=== PATIENT | male | born 1965 | race Caucasian/White ===

== ENCOUNTER → 2017-10-22 | Outpatient (CLI) | payer OTHER ==
[2017-10-22 10:42] LABS: BASO # 0.1 10^3/uL (0.0-0.2); BASO % 0.9 % (0.0-1.0); EOS # 0.1 10^3/uL (0.0-0.50); EOS % 1.2 % (0.0-3.0); HEMATOCRIT 49.3 % (42.0-52.0); HEMOGLOBIN 16.6 g/dl (14.0-18.0); IMMATURE GRANULOCYTE % 0.6 % (0-3.0); LYMPH # 2.9 10^3/uL (1.5-4.5); LYMPH % 35.4 % (24.0-44.0); MEAN CORPUSCULAR HEMOGLOBIN 29.1 pg (27.0-33.0); MEAN CORPUSCULAR HGB CONC 33.7 g/dl (32.0-36.5); MEAN CORPUSCULAR VOLUME 86.5 fl (80.0-96.0); MONO # 0.4 10^3/uL (0.0-0.8); MONO % 5.1 % (0.0-5.0); NEUTROPHILS # 4.7 10^3/uL (1.8-7.7); NEUTROPHILS % 56.8 % (36.0-66.0); PLATELET COUNT, AUTOMATED 260 10^3/uL (150-450); RED CELL DISTRIBUTION WIDTH 13.1 % (11.5-14.5); WHITE BLOOD COUNT 8.2 10^3/uL (4.0-10.0)
[2017-10-22 10:53] LABS: ALBUMIN 3.8 GM/DL (3.2-5.2); ALBUMIN/GLOBULIN RATIO 1.15 (1.00-1.93); ALKALINE PHOSPHATASE 207 U/L (45-117); ANION GAP 9 MEQ/L (8-16); AST/SGOT 60 U/L (7-37); BILIRUBIN,TOTAL 0.5 MG/DL (0.2-1.0); BLOOD UREA NITROGEN 20 MG/DL (7-18); CALCIUM LEVEL 8.4 MG/DL (8.5-10.1); CARBON DIOXIDE LEVEL 28 MEQ/L (21-32); CHLORIDE LEVEL 95 MEQ/L (98-107); CHOLESTEROL LEVEL 320 MG/DL (<200); CHOLESTEROL RISK RATIO 9.411 (<5); CREATININE FOR GFR 0.86 MG/DL (0.70-1.30); GLOMERULAR FILTRATION RATE > 60.0 (>56); GLUCOSE, FASTING 383 MG/DL (70-100); HDL CHOLESTEROL 34 MG/DL (>40); NON-HDL-C 286 MG/DL; POTASSIUM SERUM 4.1 MEQ/L (3.5-5.1); SODIUM LEVEL 132 MEQ/L (136-145); TOTAL PROTEIN 7.1 GM/DL (6.4-8.2); TRIGLYCERIDES LEVEL 1708 MG/DL (<150)
[2017-10-22 11:31] LABS: ALT/SGPT 96 U/L (12-78)
[2017-10-23 14:14] LABS: PSA TOTAL 0.3 ng/mL (0.0-4.0)
[2017-10-25 06:18] LABS: ESTIMATED AVERAGE GLUCOSE 372 MG/DL (60-110); HEMOGLOBIN A1c 14.6 %
== END ==
LOC: M WUC 08:44
DX: K21.9 Gastro-esophageal reflux disease without esophagitis (principal); Z12.5 Encounter for screening for malignant neoplasm of prostate; E78.4 Other hyperlipidemia

== ENCOUNTER → 2019-08-24 | Outpatient (REF) | payer OTHER ==
[2019-08-24 12:45] LABS: HEMATOCRIT 48.4 % (42.0-52.0); HEMOGLOBIN 16.3 g/dl (13.5-17.5); MEAN CORPUSCULAR HEMOGLOBIN 29.1 pg (27.0-33.0); MEAN CORPUSCULAR HGB CONC 33.7 g/dl (32.0-36.5); MEAN CORPUSCULAR VOLUME 86.4 fl (80.0-96.0); PLATELET COUNT, AUTOMATED 309 10^3/uL (150-450); WHITE BLOOD COUNT 9.9 10^3/uL (4.0-10.0)
[2019-08-24 13:14] LABS: CREATININE, URINE 38.9 MG/DL; MALB URINE SIEMENS 7.5 MG/L; MAU/CREAT RATIO 19.2 MCG/MG (0.0-30.0)
[2019-08-24 13:25] LABS: ALBUMIN 3.9 GM/DL (3.2-5.2); ALT/SGPT 44 U/L (12-78); BILIRUBIN,TOTAL 0.5 MG/DL (0.2-1.0); BLOOD UREA NITROGEN 14 MG/DL (7-18); CALCIUM LEVEL 8.7 MG/DL (8.5-10.1); CARBON DIOXIDE LEVEL 29 MEQ/L (21-32); CHLORIDE LEVEL 95 MEQ/L (98-107); CHOLESTEROL LEVEL 341 MG/DL (<200); CREATININE FOR GFR 1.12 MG/DL (0.70-1.30); FREE T4 1.03 NG/DL (0.76-1.46); GLOMERULAR FILTRATION RATE > 60.0 (>56); GLUCOSE, FASTING 435 MG/DL (70-100); HDL CHOLESTEROL 31 MG/DL (>40); NON-HDL-C 310 MG/DL; POTASSIUM SERUM 4.9 MEQ/L (3.5-5.1); SODIUM LEVEL 132 MEQ/L (136-145); TOTAL PROTEIN 7.3 GM/DL (6.4-8.2); TRIGLYCERIDES LEVEL 702 MG/DL (<150)
[2019-08-24 13:40] LABS: HEMOGLOBIN A1c 12.1 %
== END ==
LOC: M SFHCPLAZ 09:07
PROVIDERS: ATTEND Physician Assistant
DX: K21.9 Gastro-esophageal reflux disease without esophagitis (principal); F17.200 Nicotine dependence, unspecified, uncomplicated; Z00.00 Encounter for general adult medical examination without abnormal findings; E11.9 Type 2 diabetes mellitus without complications; Z13.220 Encounter for screening for lipoid disorders; Z13.29 Encounter for screening for other suspected endocrine disorder

== ENCOUNTER → 2019-10-04 | Outpatient (CLI) | payer OTHER ==
[2019-10-04 17:12] LABS: CHOLESTEROL RISK RATIO 7.945 (<5)
[2019-10-04 17:20] LABS: HEMOGLOBIN A1c 11.5 %
== END ==
LOC: M WUC 14:46
PROVIDERS: ATTEND Physician Assistant
DX: E11.9 Type 2 diabetes mellitus without complications (principal); E78.5 Hyperlipidemia, unspecified

== ENCOUNTER → 2019-11-15 | Outpatient (REF) | payer OTHER | LOC: M SFHCPLAZ 11:44 | PROVIDERS: ATTEND Physician Assistant | DX: E11.9 Type 2 diabetes mellitus without complications (principal); E78.5 Hyperlipidemia, unspecified ==

== ENCOUNTER → 2019-11-16 | Outpatient (REF) | payer OTHER ==
[2019-11-16 10:56] LABS: HEMOGLOBIN A1c 8.9 %
[2019-11-16 10:58] LABS: CHOLESTEROL RISK RATIO 6.102 (<5)
== END ==
LOC: M SFHCPLAZ 08:16
PROVIDERS: ATTEND Physician Assistant
DX: E11.9 Type 2 diabetes mellitus without complications (principal); E78.5 Hyperlipidemia, unspecified

== ENCOUNTER → 2020-01-08 | Outpatient (CLI) | payer OTHER ==
[~2020-01-08] MED LIST: ATOR1TAB21 PO; GEMF600T5 PO; JANT5TAB PO; JARD1TAB PO; METF10004 PO; OMEP-221 PO
== END ==
LOC: M LABSMTC 11:27
PROVIDERS: ATTEND Anesthesiology
DX: Z01.818 Encounter for other preprocedural examination (principal); Z11.59 Encounter for screening for other viral diseases

== ENCOUNTER 2020-01-11 08:51 | Day surgery (SDC) | payer OTHER ==
[~2020-01-11] VITALS: Ht 180.3 cm; Wt 121.5 kg
[~2020-01-11 08:51] MED LIST changes: +LIDOCAINE 2% 100MG/5ML SDV (FOR ANES.) As Ordered ONE; +NS 1,000 ML IV ONE; +propofoL 200 MG/20 ML VIAL As Ordered ONE
[2020-01-11] MEDS ORDERED: propofoL 200 MG/20 ML VIAL As Ordered ONE ×3 (10:04→10:32)
[2020-01-11] MEDS ORDERED: GLUCAGON INJ 1MG VIAL As Ordered ONE (10:23)
--- NOTE | 2020-01-11 10:42 | ROOR ---
Patient Name: Bill Ortiz Procedure Date: 01/11/2020 9:56 AM Date of : 1965 Age: 54 Room: [facility] Gender: Male Note Status: Finalized Procedure: Colonoscopy Indications: Screening in patient at increased risk: Family history of 1st-degree relative with colorectal cancer Providers: Mickey HERNANDEZ MD Referring MD: DIETER HOLLIDAY Shanti [facility] Adelaida Requesting Provider: Medicines: Monitored Anesthesia Care Complications: No immediate complications. Procedure: Pre-Anesthesia Assessment: - The heart rate, respiratory rate, oxygen saturations, blood pressure, adequacy of pulmonary ventilation, and response to care were monitored throughout the procedure. The Colonoscope was introduced through the anus and advanced to the cecum, identified by appendiceal orifice and ileocecal valve. The colonoscopy was performed without difficulty. The patient tolerated the procedure well. The quality of the bowel preparation was fair. Findings: The perianal and digital rectal examinations were normal. Four sessile polyps were found in the ascending colon and ileocecal valve. The polyps were 4 to 5 mm in size. These polyps were removed with a cold snare. Resection and retrieval were complete. Four sessile polyps were found in the proximal descending colon and splenic flexure. The polyps were 6 to 7 mm in size. These polyps were removed with a cold snare. Resection and retrieval were complete. To close a defect after polypectomy, three hemostatic clips were successfully placed. Two sessile polyps were found in the sigmoid colon. The polyps were 6 to 7 mm in size. These polyps were removed with a cold snare. Resection and retrieval were complete. A 10 mm polyp was found in the mid sigmoid colon. The polyp was pedunculated. An endoloop was maneuvered over the polyp stalk and closed at the mucosal attachment prior to removal in order to prevent bleeding. The polyp was removed with a hot snare. Resection and retrieval were complete. To close a defect after polypectomy, one hemostatic clip was successfully placed. There was no bleeding at the end of the procedure. Internal hemorrhoids were found during retroflexion. The hemorrhoids were medium-sized. Impression: - Preparation of the colon was fair. - Four 4 to 5 mm polyps in the ascending colon and at the ileocecal valve, removed with a cold snare. Resected and retrieved. - Four 6 to 7 mm polyps in the proximal descending colon and at the splenic flexure, removed with a cold snare. Resected and retrieved. Clips were placed. - Two 6 to 7 mm polyps in the sigmoid colon, removed with a cold snare. Resected and retrieved. - One 10 mm polyp in the mid sigmoid colon, removed with a hot snare. Resected and retrieved. Clip was placed. - Internal hemorrhoids. Recommendation: - Repeat colonoscopy in 1 year for surveillance of multiple adenomas. - Repeat colonoscopy in 1 year because the bowel preparation was suboptimal. - Resume Coumadin (warfarin) at prior dose tomorrow. Refer to referring physician for further adjustment of therapy. Mickey Hernandez MD Mickey HERNANDEZ MD 01/11/2020 10:42:16 AM Electronically signed by Mickey HERNANDEZ MD Number of Addenda: 0 Note Initiated On: 01/11/2020 9:56 AM Estimated Blood Loss: Estimated blood loss: none.
[2020-01-11 10:55] VITALS: BP 149/86
== END 2020-01-11 11:07 | disposition home or self-care (01) ==
LOC: M OPP 08:51
PROVIDERS: ATTEND Internal Medicine Gastroenterology
DX: Z12.11 Encounter for screening for malignant neoplasm of colon (principal); Z80.0 Family history of malignant neoplasm of digestive organs; K63.5 Polyp of colon; K64.8 Other hemorrhoids; E11.9 Type 2 diabetes mellitus without complications; I10 Essential (primary) hypertension; K21.9 Gastro-esophageal reflux disease without esophagitis; F17.210 Nicotine dependence, cigarettes, uncomplicated; Z79.899 Other long term (current) drug therapy; Z79.84 Long term (current) use of oral hypoglycemic drugs; Z86.718 Personal history of other venous thrombosis and embolism; Z86.711 Personal history of pulmonary embolism
CPT/HCPCS: 45385; 88305; J1610

== ENCOUNTER → 2020-02-29 | Outpatient (CLI) | payer OTHER ==
[~2020-02-29] MED LIST changes: -LIDOCAINE 2% 100MG/5ML SDV (FOR ANES.) As Ordered ONE; -NS 1,000 ML IV ONE; -propofoL 200 MG/20 ML VIAL As Ordered ONE
[2020-02-29 11:22] LABS: BLOOD UREA NITROGEN 14 MG/DL (7-18); CALCIUM LEVEL 8.6 MG/DL (8.5-10.1); CARBON DIOXIDE LEVEL 30 MEQ/L (21-32); CHLORIDE LEVEL 108 MEQ/L (98-107); CHOLESTEROL LEVEL 241 MG/DL (<200); CHOLESTEROL RISK RATIO 6.513 (<5); CREATININE FOR GFR 0.93 MG/DL (0.70-1.30); GLOMERULAR FILTRATION RATE > 60.0 (>56); GLUCOSE, FASTING 99 MG/DL (70-100); HDL CHOLESTEROL 37 MG/DL (>40); LDL CHOLESTEROL 155 MG/DL (<100); NON-HDL-C 204 MG/DL; POTASSIUM SERUM 4.3 MEQ/L (3.5-5.1); SODIUM LEVEL 142 MEQ/L (136-145); TRIGLYCERIDES LEVEL 245 MG/DL (<150)
== END ==
LOC: M WUC 08:59
PROVIDERS: ATTEND Physician Assistant
DX: E11.9 Type 2 diabetes mellitus without complications (principal); E78.5 Hyperlipidemia, unspecified

== ENCOUNTER → 2020-08-05 | Outpatient (REF) | payer OTHER ==
[2020-08-05 11:03] LABS: INR 1.93; PROTHROMBIN TIME 22.5 SECONDS (12.5-14.3)
[2020-08-05 11:14] LABS: BLOOD UREA NITROGEN 21 MG/DL (7-18); CALCIUM LEVEL 9.2 MG/DL (8.5-10.1); CARBON DIOXIDE LEVEL 27 MEQ/L (21-32); CHLORIDE LEVEL 98 MEQ/L (98-107); CREATININE FOR GFR 1.08 MG/DL (0.70-1.30); GLOMERULAR FILTRATION RATE > 60.0 (>56); GLUCOSE, FASTING 351 MG/DL (70-100); POTASSIUM SERUM 4.1 MEQ/L (3.5-5.1); SODIUM LEVEL 133 MEQ/L (136-145)
[2020-08-05 11:20] LABS: HEMOGLOBIN A1c 10.9 %
== END ==
LOC: M SFHCPLAZ 08:02
PROVIDERS: ATTEND Physician Assistant
DX: E11.9 Type 2 diabetes mellitus without complications (principal); Z51.81 Encounter for therapeutic drug level monitoring

== ENCOUNTER → 2020-11-14 | Outpatient (REF) | payer OTHER ==
[2020-11-14 11:57] LABS: BLOOD UREA NITROGEN 19 MG/DL (7-18); CALCIUM LEVEL 8.7 MG/DL (8.5-10.1); CARBON DIOXIDE LEVEL 28 MEQ/L (21-32); CHLORIDE LEVEL 102 MEQ/L (98-107); GLOMERULAR FILTRATION RATE > 60.0 (>56); GLUCOSE, FASTING 205 MG/DL (70-100); POTASSIUM SERUM 4.5 MEQ/L (3.5-5.1); SODIUM LEVEL 135 MEQ/L (136-145)
[2020-11-14 13:11] LABS: HEMOGLOBIN A1c 11.6 %
== END ==
LOC: M PLALAB 08:04
PROVIDERS: ATTEND Physician Assistant
DX: E11.9 Type 2 diabetes mellitus without complications (principal)

== ENCOUNTER → 2021-05-01 | Outpatient (CLI) | payer OTHER ==
[2021-05-01 14:12] LABS: HEMOGLOBIN A1c 8.3 %
[2021-05-01 14:27] LABS: ALBUMIN 3.7 GM/DL (3.2-5.2); ALT/SGPT 28 U/L (12-78); BILIRUBIN,TOTAL 0.3 MG/DL (0.2-1.0); BLOOD UREA NITROGEN 11 MG/DL (7-18); CALCIUM LEVEL 9.1 MG/DL (8.5-10.1); CARBON DIOXIDE LEVEL 29 MEQ/L (21-32); CHLORIDE LEVEL 101 MEQ/L (98-107); CHOLESTEROL LEVEL 248 MG/DL (<200); CHOLESTEROL RISK RATIO 6.526 (<5); CREATININE FOR GFR 1.02 MG/DL (0.70-1.30); GLOMERULAR FILTRATION RATE > 60.0 (>56); GLUCOSE, FASTING 131 MG/DL (70-100); HDL CHOLESTEROL 38 MG/DL (>40); LDL CHOLESTEROL 148 MG/DL (<100); NON-HDL-C 210 MG/DL; POTASSIUM SERUM 4.4 MEQ/L (3.5-5.1); SODIUM LEVEL 139 MEQ/L (136-145); TOTAL PROTEIN 7.3 GM/DL (6.4-8.2); TRIGLYCERIDES LEVEL 311 MG/DL (<150)
[2021-05-01 14:28] LABS: CREATININE, URINE 21.8 MG/DL; MALB URINE SIEMENS 17.2 MG/L; MAU/CREAT RATIO 78.8 MCG/MG (0.0-30.0)
== END ==
LOC: M PLALAB 09:51
PROVIDERS: ATTEND Physician Assistant
DX: E11.9 Type 2 diabetes mellitus without complications (principal)

== ENCOUNTER → 2021-06-19 | Outpatient (CLI) | payer OTHER ==
[~2021-06-19] MED LIST changes: +LOPI600T PO
== END ==
LOC: M LABSMTC 09:16
PROVIDERS: ATTEND Anesthesiology
DX: Z01.818 Encounter for other preprocedural examination (principal); Z11.52 Encounter for screening for COVID-19

== ENCOUNTER 2021-06-24 06:42 | Day surgery (SDC) | payer OTHER ==
[~2021-06-24] VITALS: Ht 180.3 cm; Wt 122.5 kg
[~2021-06-24 06:42] MED LIST changes: +NS 1,000 ML IV ONE
--- OUTSIDE RECORDS SUMMARY | 2021-06-24 06:49 | CCD ---
Author Author [facility] Organization [facility] Address Unknown Phone Unavailable Care Team Providers Care Thermal Cutter Hand Name Role Phone DevinYocasta galindoan Unavailable PROBLEMS Type Condition ICD9-CM Code CNC92-OC Code Onset Dates Condition S tatus W/U Status Risk SNOMED Code Notes Problem Nicotine dependence with current use F17.200 Act jesusita confirmed 773082365 Problem GERD without esophagitis K21.9 Active confirmed 000478672 Problem Dyslipidemia E78.5 Active confirmed 9169252 07 Problem Presence of IVC filter Z95.828 Active confirmed 630623293883358 Problem Type 2 diabetes mellitus wit hout complication, without long-term current use of insulin E11.9 Active confirmed 545578848 Problem 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 Active confirmed 074037547 Problem assisted (current) use of anticoagulants Z79.01 Active confirmed 747378764 Problem History of DVT (deep vein thrombosis) Z86.718 Ac tive confirmed 588749485 Problem Encounter for therapeutic drug level monitoring Z5 1.81 Active confirmed 514630554 Problem Adenomatous polyp of ascending colon D12.2 Act jesusita confirmed 033487841 ALLERGIES No Known Allergies ENCOUNTERS from 1965 to 2021-05-19 Encounter Location Date Provider Diagnosis [address] [phone] [place] [address] May, Nazia Burnette Pulmonary embolus and infarc tion I26.99 IMMUNIZATIONS Vaccine Route Administration Date Status COVID-19 dose #2 given elsewhere Unspecified Unknown Jan Administered COVID-19 dose #1 given elsewhere Unspecified Unknown December 28, 2020 Administered Influenza 18 yrs & older Flublok IM Intramuscular Sep 15, 2019 Administered TDAP 0.5mL (Boostrix) IM Intramuscular Sep 15, 2019 Administe red SOCIAL HISTORY Tobacco Use: Social History Observation Description Date Details (start date - stop date) Current Smoker Sex Assigned At : Social History Observation Description Sex Assigned At Unknown Education: Question Answer Notes Level of Education: High School Audit Question Answer Notes Total Score: 2 Interpretation: Alcohol Education Language: Question Answer Notes Languages spoken: [place] Episcopal: Question Answer Notes Episcopal No holiness beliefs that would impact health care. Sexual Hx: Question Answer Notes Had sex in the last 12 months (vaginal, oral, or anal)? No Have you ever had an STD? No Drug and Alcohol Question Answer Notes Total Score: 0 Interpretation: No problems reported Alcohol Screening: Question Answer Notes Did you have a drink containing alcohol in the past year? Ye s Points 3 Interpretation Negative How often did you have six or more drinks on one occas ion in the past year? Never (0 points) How many drinks did you have on a typica l day when you were drinking in the past year? 3 or 4 (1 point) How often did you have a drink containing alcohol in t he past year? Two to four times a month (2 points) Tobacco Use: Question Answer Notes Are you a: current smoker Smoking Cessation Information Given 01/16/2021 Patient counseled on the dangers of tobacco use and urged to quit: 01/16/2021 How many cigarettes a day do you smoke? 11-20 Are you interested in quitting? Not ready to quit Counseled the patient on smoking effects, education provided 01/16/2021 REASON FOR REFERRAL No Information VITAL SIGNS No information MEDICATIONS Medication SIG (Take, Route, Frequency, Duration) Notes Start Da te End Date Status Gemfibrozil 600 MG 1 tablet 30 minutes before m orning and evening meals Orally Twice a day for 30 Active metFORMIN HCl 1000 MG 1 tablet with a meal Orally twice a day for 90 days Active Coumadin 5 MG 1.5-2 tablets Orally Once a day, dose changes based on INR results Active Atorvastatin Calcium 20 MG 1 tablet Orally Once a day for 90 Active Omeprazole 40 MG 1 capsule 30 minutes before morning meal Orally Once a day for 90 day(s) Active Jardiance 25 MG 1 tablet Orally Once a day for 90 day(s) Active PROCEDURES No Information RESULTS No Results REASON FOR VISIT incomplete coagulopathy workup MEDICAL (GENERAL) HISTORY Type Description Date Medical History DVT-h/o IVC filter-01/2008-Bi lat. PE in lower lobes on CTA; anticardiolipin antibodies neg. Medical History GERD Medical History Type 2 DM Medical History HLD Medical History Colonoscopy- 12/2019 polypect omies 11total, int. hem.s f/u 1Y -1 10mm polyp inflammatory in sigmoid, 2 tub. adenomas , 4 6-7mm polyps in proc. eliseo. colon, splenic flexure & 4 5mm polyps in asc. colon out, Dr. Hernandez to repeat in 2020 Surgical History stent placement 2009 Surgical History colonoscopy 12/2019 Surgical History IVC rea filter placed 01/2008 Hospitalization History DVT right leg 2009 Hospitalization History Bilat. PE 01/2008 Goals Section No Information Health Concerns No Information MEDICAL EQUIPMENT No Information MENTAL STATUS No Information FUNCTIONAL STATUS No Information ASSESSMENTS Encounter Date Diagnosis Assessment Notes Treatment Notes Treatm ent Clinical Notes May, Pulmonary embolus and infarction (ICD-10 - I26.9 9) PLAN OF TREATMENT Medication Medication Name Sig Start Date Stop Date Coumadin 5 MG 1.5-2 tablets Orally Once a day, dose changes based on INR results Treatment Notes Test Name Order Date PROTEIN C ANTIGEN 2021-05-19 Factor II Prothrombin Gene DNA 2021-05-19 PROTEIN S ANTIGEN (TOT & FREE) 2021-05-19 FACTOR V 2021-05-19 Next Appt Details Provider Name:Nazia Burnette, 2020-08 0- 08:30:00 AM, [address] [place] [address] , [place], [address], Provider Name:Nazia Burnette, 2020-08 08:45:00 AM, [address] [place] [address] , [place], [address], Insurance Providers Payer Name Payer Address Payer Phone Insured Name Patient Relati onship to Insured Coverage Start Date Coverage End Date [facility] [address] [facility] [phone] self
--- OUTSIDE RECORDS SUMMARY | 2021-06-24 06:49 | CCD ---
Author Author [facility] Organization [facility] Address Unknown Phone Unavailable Care Team Providers Care V Belt Mold Assembler And Curer Name Role Phone Yomaira Nazia Unavailable PROBLEMS Type Condition ICD9-CM Code [id number] Code Onset Dates Condition S tatus W/U Status Risk SNOMED Code Notes Problem Nicotine dependence with current use F17.200 Act jesusita confirmed 210936237 Problem GERD without esophagitis K21.9 Active confirmed 928270015 Problem Dyslipidemia E78.5 Active confirmed 8524743 07 Problem Presence of IVC filter Z95.828 Active confirmed 159686338080303 Problem Type 2 diabetes mellitus wit hout complication, without long-term current use of insulin E11.9 Active confirmed 400674562 Problem 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 Active confirmed 354236321 Problem prison (current) use of anticoagulants Z79.01 Active confirmed 342915418 Problem History of DVT (deep vein thrombosis) Z86.718 Ac tive confirmed 464150502 Problem Encounter for therapeutic drug level monitoring Z5 1.81 Active confirmed 797610811 Problem Adenomatous polyp of ascending colon D12.2 Act jesusita confirmed 248048232 ALLERGIES No Known Allergies ENCOUNTERS from 1965 to 2021-05-16 Encounter Location Date Provider Diagnosis [address] [phone] [place] [address] Apr, Nazia Burnette Encounter for therapeutic dr ug level monitoring Z51.81 ; History of DVT (deep vein thrombosis) Z86.718 ; prison (current) use of anticoagulants Z79.01 ; Adenomatous polyp of ascending colon D12.2 ; Presence of IVC filter Z95.828 and 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 Sexual [...] REASON FOR REFERRAL No Information VITAL SIGNS Weight 276 lbs Apr, Height 71 in Apr, BMI 38.49 kg/m2 Apr, Heart Rate 79 /min Apr, Respiratory Rate 20 /min Apr, Temperature 97 degrees Fahrenheit Apr, Oximetry 97 Apr, Blood pressure systolic 130 mm Hg Apr, Blood pressure diastolic 80 mm Hg Apr, MEDICATIONS Medication SIG (Take, Route, Frequency, Duration) [...] 90 day(s) Active PROCEDURES No Information RESULTS Component Value Reference Range PT-INR Fingerstick Reviewed date:05/08/2021 08:58:59 Interpretation: Performing Lab:[facility] [place] [address] INR 2.3 Verified Patient's Name and DW Current Dose 1 Current Dose 2 7.5row Tab Strength 5mg Indication for Anticoagulation DVT Recent Bleeding no Internal QC Acceptable (Y/N) yes Therapeutic Range 2-3 Education Given (Date / Initials) New Dose 1 NC New Dose 2 Weekly Total 52.5mg/W Next PT-INR 4W - - REASON FOR VISIT PTINR done MEDICAL (GENERAL) HISTORY Type Description Date Medical [...] Notes Treatment Notes Treatm ent Clinical Notes Apr, Encounter for therapeutic drug level mon itoring (ICD-10 - Z51.81) 11 polyps out 12/2019 f/u 12/2019 s/p colonoscopy c 11 polyps out several tub. adenomas, int. hemorrhoids, Dr. Hernandez f/u in 1Y Apr, History of DVT (deep vein thrombosis) (ICD-10 - Z86.718) Apr, termite helper (current) use of anticoagulants (ICD-1 0 - Z79.01) 2-3 INR Apr, Adenomatous polyp of ascending colon (ICD-10 - D 12.2) [address] Hernandez 12/2019 f/u 1Y Apr, Presence of IVC filter (ICD-10 - Z95.828) 01/2008 placed @ [facility] after PE Apr, Healed or old pulmonary embolism (ICD-10 - Z86.7 11) 01/2008 on CTA bilat lower lobes Apr, Other 35" chart portia yee, records from [employer], orders, plan, H&P PLAN OF TREATMENT Medication Medication Name Sig Start Date Stop Date Coumadin 5 MG 1.5-2 tablets Orally Once a day, dose changes based on INR results Treatment Notes Assessment Notes Clinical Notes Encounter for therapeutic drug level monitoring 11 polyps out 12/2019 f/u s/p colonoscopy c 11 polyps out several tub. adenomas, int. hemorrhoids, Dr. Hernandez f/u in 1Y termite helper (current) use of anticoagulants 2-3 INR Adenomatous polyp of ascending colon [address] Hernandez 12/2019 f/u 1Y Presence of IVC filter 01/2008 placed @ [facility] after PE Healed or old pulmonary embolism 01/2008 on CTA bilat lower lobes Next Appt Details 4 Weeks c SS INR Reason: Provider Name:Nazia Burnette, 2020-08 0 08:30:00 AM, [address] [place] [address] , [place], [address], Provider Name:Nazia Burnette, 2020-08 08:45:00 AM, [address] [place] [address] , [place], [address], Insurance Providers Payer Name Payer Address Payer Phone Insured Name Patient Relati onship to Insured Coverage Start Date Coverage End Date [facility] [address] [facility] [phone] self
--- OUTSIDE RECORDS SUMMARY | 2021-06-24 06:50 | CCD | Continuity of Care Document ---
Author Author [facility] Organization Unknown Address [address], [address] [place] [address] Phone [phone] Care Team Providers Care Speech Clinician Name Role Phone Johann Paulina Zamzam Goyal AUTM [phone] Central Scheduling AUTM [phone] Sdio AUTM [phone] Problems Description No Active Problems Social History Type Date Description Comments Sex Unknown ETOH Use 3-4 drinks every 2 weeks Tobacco Use Start: Unknown Report Cessation Counseling Was Provided Tobacco Use Start: Unknown Smokes 1 Pack A Day Allergies, Adverse Reactions, Alerts Description No Known Drug Allergies Medications Active Medications SIG Qnty Indications Ordering Provide r Date Miralax 17GM/Scoop Powder use as instructed by doctor for bowel prep 510gm Z12.11 Mickey Hernandez MD 03/06/2021 Milk Of Magnesia 1200mg/15ML Suspe nsion take 45 milliliters by mouth as directed on colonoscopy prep sheet. Z12.11 Mickey Hernandez MD 03/06/2021 Jantoven 7.5mg Tablets take one tablet by mouth daily Unknown Metformin HCL 1000mg Tablets 1 tab by mouth twice a day Unknown Gemfibrozil 600mg Tablets bid Unknown Atorvastatin Calcium 10mg Tablets once a day Unknown Jardiance 25mg Tablets 1 b y mouth daily Unknown Omeprazole 40mg Capsules DR 1 by mouth every day Unknown Immunizations Description No Information Available Vital Signs Date Vital Result Comment 03/06/2021 2:54pm BP Systolic 126 mmHg BP Diastolic 78 mmHg Height 71 inches 5'11" Weight 284.00 lb BMI (Body Mass Index) 39.6 kg/m2 [place] Body Weight 172 lb Weight 128.822 kg BSA (Body Surface Area) 2.45 m2 10/11/2019 1:06pm BP Systolic 118 mmHg BP Diastolic 72 mmHg Height 71 inches 5'11" Weight 268.00 lb BMI (Body Mass Index) 37.4 kg/m2 [place]aver Body Weight 172 lb Weight 121.565 kg BSA (Body Surface Area) 2.39 m2 Results Description No Information Available Procedures Description No Information Available Medical Devices Description No Information Available Encounters Description No Information Available Assessments Date Code Description Provider 03/06/2021 Z12.11 Encounter for screening for elin gnant neoplasm of colon PHILIPPE Torres 03/06/2021 Z86.010 Personal history of colonic poly ps PHILIPPE Torres 03/06/2021 Z80.0 Family history of malignant neop lasm of digestive organs PHILIPPE Torres Plan of Treatment 03/06/2021 - PHILIPPE Torres* Z12.11 Encounter for screening for malignant neoplasm of colon * Z86.010 Personal history of colonic polyps * Z80.0 Family history of malignant neoplasm of digestive organs * * New Medication:* Miralax 17 GM/Scoop * Milk Of Magnesia 1200 mg/15ML * New Orders:* Colonoscopy, Ordered: 03/06/21 * Comments:* Will arrange for colonoscopy. Reviewed risks and benefits of the procedure, as well as other options, with the patient. Bowel prep procedure was discussed with patient, as well as risks and side effects associated with the bowel prep. Patient will complete the Miralax 2.0 bowel prep. A letter will be sent to his PCP requesting permission for him to hold Jantoven (warfarin) prior to procedure. Patient verbalized understanding of all of the above and is in agreement to proceed. Patient will seek medical attention for any acute changes. Will monitor. * Follow up:* As scheduled, sooner if needed. Functional Status Description No Information Available Mental Status Description No Information Available Referrals Description No Information Available
--- OUTSIDE RECORDS SUMMARY | 2021-06-24 06:50 | CCD ---
Author Author [facility] Organization [facility] Address Unknown Phone Unavailable Care Team Providers Care Network Consultant Name Role Phone Paulina Wills Unavailable PROBLEMS Type Condition ICD9-CM Code [id number] Code Onset Dates Condition S tatus W/U Status Risk SNOMED Code Notes Problem Dyslipidemia E78.5 Active confirmed 5257702 07 Problem History of DVT (deep vein thrombosis) Z86.718 Ac tive confirmed 931997457 Problem Encounter for therapeutic drug level monitoring Z5 1.81 Active confirmed 189061044 Problem long-term (current) use of anticoagulants Z79.01 Active confirmed 273857617 Problem Nicotine dependence with current use F17.200 Act jesusita confirmed 972223319 Problem Type 2 diabetes mellitus wit hout complication, without long-term current use of insulin E11.9 Active confirmed 718236532 Problem GERD without esophagitis K21.9 Active confirmed 635177298 ALLERGIES No Known Allergies ENCOUNTERS from 1965 to 2021-05-09 Encounter Location Date Provider Diagnosis [address] [phone] [place] [address] 16 Apr, 2021 Paulinaeliana Wills Encounter for therapeutic dr ug level monitoring Z51.81 ; History of DVT (deep vein thrombosis) Z86.718 and terminal make up operator (current) use of anticoagulants Z79.01 IMMUNIZATIONS Vaccine Route Administration Date Status COVID-19 [...] Education Language: Question Answer Notes Languages spoken: Latvian Protestant: Question Answer Notes Protestant No worship beliefs that would impact health care. Sexual [...] FOR REFERRAL No Information VITAL SIGNS Weight 279 lbs Apr, Weight-kg 126.55 kg Apr, Height 71 in Apr, BMI 38.91 kg/m2 Apr, Heart Rate 67 /min Apr, Respiratory Rate 20 /min Apr, Temperature 97.9 degrees Fahrenheit Apr, Oximetry 97 Apr, Blood pressure systolic 126 mm Hg Apr, Blood pressure diastolic 80 [...] Value Reference Range PT-INR Fingerstick Reviewed date:05/08/2021 13:39:45 Interpretation: Performing Lab:[facility], ,[place] [address] INR 3.5 Verified Patient's Name and vaibhav, Lucia LONDON Current Dose 1 10mg Tu/Fri Current Dose 2 7.5mg ROW Tab Strength 5mg tablet Indication for Anticoagulation DVT Recent Bleeding no Internal QC Acceptable (Y/N) yes Therapeutic Range 2-3 Education Given (Date / Initials) New Dose 1 hold dose today and then start 7.5mg areli ly New Dose 2 Weekly Total Next PT-INR 1 week - - REASON FOR VISIT 6 Weeks Vero pt/inr MEDICAL (GENERAL) HISTORY Type Description Date Medical History DVT-h/o IVC filter Medical History GERD Medical History Type 2 DM Medical History HLD Medical History Colonoscopy- 12/2019 polypectomy, repeat in 2020 Surgical History stent placement 2009 Surgical History colonoscopy 12/2019 Hospitalization History DVT right leg 2009 Goals Section No Information Health Concerns No Information MEDICAL EQUIPMENT No Information MENTAL STATUS No Information FUNCTIONAL STATUS No Information ASSESSMENTS Encounter Date Diagnosis Assessment Notes Treatment Notes Treatm ent Clinical Notes Apr, Encounter for therapeutic drug level mon itoring (ICD-10 - Z51.81) patient is going to hold his dose today and then start 7.5mg daily, repeat INR in 1 week. report any bleeding issues. Maintain stable dietary intake of vitamin K-containing foods Apr, History of DVT (deep vein thrombosis) (ICD-10 - Z86.718) Apr, long-term (current) use of anticoagulants (ICD-1 0 - Z79.01) PLAN OF TREATMENT Medication Medication Name Sig Start Date Stop Date Coumadin 5 MG 1.5-2 tablets Orally Once a day, dose changes based on INR results Treatment Notes Assessment Notes Clinical Notes Encounter for therapeutic drug level monitoring patient is going to hold his dose today and then start 7.5mg daily, repeat INR in 1 week. report any bleeding issues. Maintain stable dietary intake of vitamin K-containing foods Next Appt Details 1 Week- INR Reason: Provider Name:Nazia Burnette, 2020-08 0 08:30:00 AM, [address] [place] [address], , [place], [address], Provider Name:Nazia Burnette, 2020-08 08:45:00 AM, [address] [place] [address], , [place], [address], Insurance Providers Payer Name Payer Address Payer Phone Insured Name Patient Relati onship to Insured Coverage Start Date Coverage End Date [facility] COMMUNITY PLAN [facility] [address] [facility] [phone] self
--- OUTSIDE RECORDS SUMMARY | 2021-06-24 06:50 | CCD ---
Author Author [facility] Organization [facility] Address Unknown Phone Unavailable Care Team Providers Care Edge Molder Name Role Phone Joleen Mike Unavailable PROBLEMS Type Condition ICD9-CM Code [id number] Code Onset Dates Condition S tatus W/U Status Risk SNOMED Code Notes Problem Dyslipidemia E78.5 Active confirmed 1524931 [id number] Problem History of DVT (deep vein thrombosis) Z86.718 Ac tive confirmed 743348405 Problem Encounter for therapeutic drug level monitoring Z5 1.81 Active confirmed 568137982 Problem manager intermediate (current) use of anticoagulants Z79.01 Active confirmed 173682661 Problem Nicotine dependence with current use F17.200 Act jesusita confirmed 073002454 Problem Type 2 diabetes mellitus wit hout complication, without long-term current use of insulin E11.9 Active confirmed 212755421 Problem GERD without esophagitis K21.9 Active confirmed [id number] ALLERGIES No Known Allergies ENCOUNTERS from 1965 to 2021-03-31 Encounter Location Date Provider Diagnosis [address] [phone] [place] [address] Mar, Joleenignacio Mike manager intermediate (current) use of a nticoagulants Z79.01 ; History of DVT (deep vein thrombosis) Z86.718 and Encounter for therapeutic drug level monitoring Z51.81 IMMUNIZATIONS Vaccine Route Administration Date Status COVID-19 [...] Education Language: Question Answer Notes Languages spoken: Togolese Moravian: Question Answer Notes Moravian No adventism beliefs that would impact health care. Sexual [...] FOR REFERRAL No Information VITAL SIGNS Weight 280 lbs Mar, Weight-kg 127.01 kg Mar, Height 71 in Mar, BMI 39.05 kg/m2 Mar, Heart Rate 66 /min Mar, Respiratory Rate 20 /min Mar, Temperature 97.4 degrees Fahrenheit Mar, Oximetry 97 Mar, Blood pressure systolic 142 mm Hg Mar, Blood pressure diastolic 80 mm Hg Mar, MEDICATIONS Medication SIG (Take, Route, Frequency, Duration) Notes Start Da te End Date Status Coumadin 5 MG 1.5-2 tablets Orally Once a day, dose changes based on INR results Active Omeprazole 40 MG 1 capsule 30 minutes before morning meal Orally Once a day for 90 day(s) Active Atorvastatin Calcium 10 MG 1 tablet Orally Once a day for 30 Not-Taking Gemfibrozil 600 MG 1 tablet 30 minutes before m orning and evening meals Orally Twice a day for 30 Active Jardiance 25 MG 1 tablet Orally Once a day for 90 day(s) Active Atorvastatin Calcium 20 MG 1 tablet Orally Once a day for 90 Active metFORMIN HCl 1000 MG 1 tablet with a meal Orally twice a day for 90 days Active PROCEDURES No Information RESULTS Component Value Reference Range PT-INR Fingerstick Reviewed date:03/27/2021 09:29:32 Interpretation: Performing Lab:[facility], ,[place] [address] INR 2.4 Verified Patient's Name and yes S.Saeed Current Dose 1 10 mg /wed Current Dose 2 7.5 ROW Tab Strength 5 mg tablets Indication for Anticoagulation DVT Recent Bleeding no Internal QC Acceptable (Y/N) yes Therapeutic Range 2-3 Education Given (Date / Initials) yes New Dose 1 no change New Dose 2 Weekly Total Next PT-INR 6 weeks - - REASON FOR VISIT 6 WEEK FOLLOW UP PT INR MEDICAL (GENERAL) HISTORY Type Description Date Medical History DVT Medical History GERD Medical History Type 2 DM Medical History HLD Medical History Colonoscopy- 12/2019 polypectomy, repeat in 2020 Surgical History stent placement 2009 Surgical History colonoscopy 12/2019 Hospitalization History DVT right leg 2010 Goals Section No Information Health Concerns No Information MEDICAL EQUIPMENT No Information MENTAL STATUS No Information FUNCTIONAL STATUS No Information ASSESSMENTS Encounter Date Diagnosis Assessment Notes Treatment Notes Treatm ent Clinical Notes Mar, manager intermediate (current) use of anticoagulants (ICD-1 0 - Z79.01) INR within normal range 2.4, no change in current dose 10 mg Wednesday, 7.5 mg remaining days Mar, History of DVT (deep vein thrombosis) (ICD-10 - Z86.718) Denies leg discomfort Mar, Encounter for therapeutic drug level mon itoring (ICD-10 - Z51.81) Mar, Other Educated about drinking beer in the hot weather, and taking Coumadin therapy PLAN OF TREATMENT Treatment Notes Assessment Notes Clinical Notes jail (current) use of anticoagulants INR within normal range 2.4, no change in current dose 10 mg Wednesday, 7.5 mg remaining days History of DVT (deep vein thrombosis) De nies leg discomfort Next Appt Details 6 Weeks Vero pt/inr Reason: Provider Name:Paulina Wills, 2021-05-01 10 :30:00 AM, [address] [facility], , [place], [address], Insurance Providers Payer Name Payer Address Payer Phone Insured Name Patient Relati onship to Insured Coverage Start Date Coverage End Date [facility] [employer] [facility] [address] [facility] [phone]
--- OUTSIDE RECORDS SUMMARY | 2021-06-24 06:50 | CCD ---
Author Author [facility] Organization [facility] Address Unknown Phone Unavailable Support Name Relationship Address Phone [facility] Next Of Kin [address] [place] [address] CONCENTRIX Next Of Kin [address] [place] [address] [employer]ICE[employer] Next Of Kin [address] [place] [address] [place] [address] HARTLEY CHOPPER Next Of Kin [address] [place] [address] FEMI MATTSON Next Of Kin [address] [place] [address] Re-disclosure Warning The records that you are about to access may contain information from federally-assisted alcohol or drug abuse programs. If such information is present, then the following federally mandated warning applies: This information has been disclosed to you from records protected by federal confidentiality rules (42 CFR part 2). The federal rules prohibit you from making any further disclosure of this information unless further disclosure is expressly permitted by the written consent of the person to whom it pertains or as otherwise permitted by 42 CFR part 2. A general authorization for the release of medical or other information is NOT sufficient for this purpose. The Federal rules restrict any use of the information to criminally investigate or prosecute any alcohol or drug abuse patient.The records that you are about to access may contain highly sensitive health information, the redisclosure of which is protected by Article 27-F of the [facility] Public Health law. If you continue you may have access to information: Regarding HIV / AIDS; Provided by facilities licensed or operated by the [facility] Office of Mental Health; or Provided by the [facility] Office for People With Developmental Disabilities. If such information is present, then the following [facility] mandated warning applies: This information has been disclosed to you from confidential records which are protected by state law. State law prohibits you from making any further disclosure of this information without the specific written consent of the person to whom it pertains, or as otherwise permitted by law. Any unauthorized further disclosure in violation of state law may result in a fine or senior care sentence or both. A general authorization for the release of medical or other information is NOT sufficient authorization for further disc losure. Family History Family Member Name Family Member Gender Family Member Status Date o f Status Description Data Source(s) Unknown Unknown Problem MEDENT ([facility]) Encounters Encounter Providers Location Date Indications Data Source(s ) Unknown [address] [facility] [place] [address] 05/19/2021 12:00:00 AM EDT eCW1 ([facility]) Outpatient [address] [facility] [place] [address] 05/08/2021 12:00:00 AM EDT eCW1 ([facility]) Outpatient [address] [facility] [place] [address] 05/01/2021 12:00:00 AM EDT eCW1 ([facility]) Outpatient [address] [facility] [place] [address] 03/27/2021 12:00:00 AM EDT eCW1 ([facility]) Unknown [address] [facility] [place] [address] 03/13/2021 12:00:00 AM EDT eCW1 ([facility]) Outpatient [address] [facility] [place] [address] 02/13/2021 12:00:00 AM EDT eCW1 ([facility]) Unknown [address] [facility] [place] [address] 01/29/2021 12:00:00 AM EDT eCW1 ([facility]) Outpatient [address] [facility] [place] [address] 01/16/2021 12:00:00 AM EDT eCW1 ([facility]) Outpatient [address] [facility] [place] [address] 12/12/2020 12:00:00 AM EDT eCW1 ([facility] hospital) Outpatient [address] [facility] [place] [address] 11/14/2020 12:00:00 AM EDT eCW1 (Critical access hospital) Unknown [address] [facility] [place] [address] 10/24/2020 12:00:00 AM EST eCW1 (Critical access hospital) Unknown [address] [facility] [place] [address] 10/11/2020 12:00:00 AM EST eCW1 (Critical access hospital) Outpatient [address] [facility] [place] [address] 10/03/2020 12:00:00 AM EST eCW1 (Critical access hospital) Unknown [address] [facility] [place] [address] 09/10/2020 12:00:00 AM EST eCW1 (Critical access hospital) Outpatient [address] [facility] [place] [address] 08/23/2020 12:00:00 AM EST eCW1 (Critical access hospital) TeleMedicine Phone E/M by Phys 5-10 Min [address] [place] [address] 08/05/2020 12:00:00 AM EST eCW1 ([facility]) Unknown [address] [facility], [place] [address] 07/30/2020 12:00:00 AM EST eCW1 (Critical access hospital) Immunizations Vaccine Date Status Description Data Source(s) COVID-19 dose #2 given elsewhere Unspecified 01/18/2021 08:3 1:00 AM EDT completed eCW1 (Critical access hospital) COVID-19 dose #2 given elsewhere Unspecified 01/18/2021 08:3 1:00 AM EDT completed eCW1 (Critical access hospital) COVID-19 dose #2 given elsewhere Unspecified 01/18/2021 08:3 1:00 AM EDT completed eCW1 (Critical access hospital) COVID-19 dose #2 given elsewhere Unspecified 01/18/2021 08:3 1:00 AM EDT completed eCW1 (Critical access hospital) COVID-19 VACC, MRNA(PFIZER)/PF 01/18/2021 12:00:00 AM EDT completed [facility] COVID-19 VACCINE Pfizer 01/18/2021 12:00:00 AM EDT completed [facility] Vaccine Series Complete: YESThis Data wa s Submitted to [facility]. COVID-19 dose #1 given elsewhere Unspecified 12/28/2020 08:3 0:00 AM EDT completed eCW1 (Critical access hospital) COVID-19 dose #1 given elsewhere Unspecified 12/28/2020 08:3 0:00 AM EDT completed eCW1 (Critical access hospital) COVID-19 dose #1 given elsewhere Unspecified 12/28/2020 08:3 0:00 AM EDT completed eCW1 (Critical access hospital) COVID-19 dose #1 given elsewhere Unspecified 12/28/2020 08:3 0:00 AM EDT completed eCW1 (Critical access hospital) COVID-19 VACCINE Pfizer 12/28/2020 12:00:00 AM EDT completed [facility] Vaccine Series Complete: NOThis Data was Submitted to [facility]. COVID-19 VACC, MRNA(PFIZER)/PF 12/28/2020 12:00:00 AM EDT completed [facility] Medications Medication Brand Name Start Date Product Form Dose Route Admi nistrative Instructions Pharmacy Instructions Status Indications Reaction Description Data Source(s) POLYETHYLENE GLYCOL 3350 142 MG/ML Oral Solution [Miralax] M iralax 03/06/2021 12:00:00 AM EDT active M EDENT ([facility], ) Magnesium Hydroxide 80 MG/ML Oral Suspension Milk Of Magnesi a 03/06/2021 12:00:00 AM EDT ORAL active M EDENT ([facility], ) Insurance Providers Payer name Policy type / Coverage type Policy ID Covered green party ID Covered green party's relationship to sutton Policy Sutton Plan Information [facility] COMM[facility] PLAN [facility] [id number] [facility] Commercial [id number] Self [id number] [facility] [id number] SP [id number] Problems, Conditions, and Diagnoses Code Display Name Description Problem Type Effective Dates Data Source(s) D12.2 [id number] Adenomatous polyp of ascending colon Prob aylin 05/16/2021 12:00:00 AM EDT eCW1 ([facility], [facility]) Z86.711 [id number] Healed or old pulmonary embolism Problem 05/16/2021 12:00:00 AM EDT eCW1 ([facility], [facility]) Z95.828 [id number] Presence of IVC filter Problem 12:00:00 AM EDT eCW1 ([facility], [facility]) Surgeries/Procedures No Information Results ID Date Data Source [id number] 06/19/2021 09:15:00 AM EDT [facility] Name Value Range Interpretation Code Description Data Radha rce(s) Supporting Document(s) SARS-CoV-2 (COVID-19) RNA [Presence] in Respiratory specimen by JIN with probe detection Not Detected [facility] This lab was ordered by [facility] and reported by [facility]. ID Date Data Source [id number]-[id number] 08/05/2020 12:00:00 AM EST eCW1 ([facility]) Name Value Range Interpretation Code Description Data Radha rce(s) Supporting Document(s) Prothrombin time (PT) 22.5 12.5-14.3 PROTHROMBIN TI ME eCW1 ([facility], [facility]) INR in Platelet poor plasma by Coagulation assay 1.93 INR eCW1 ([facility], [facility]) ID Date Data Source Basic Metabolic Profile (BMP) 08/05/2020 12:00:00 AM EST eCW 1 ([facility], [facility]) Name Value Range Interpretation Code Description Data Radha rce(s) Supporting Document(s) 21 7-18 BLOOD UREA NITROGEN eCW1 ([facility]) 351 70-100 GLUCOSE, FASTING eCW1 ([facility]) 133 136-145 SODIUM LEVEL eCW1 ([facility]) > 60.0 >56 GLOMERULAR FILTRATION RATE eCW 1 ([facility], [facility]) 1.08 0.70-1.30 CREATININE FOR GFR eCW1 (Formerly [facility]) 98 98-107 CHLORIDE LEVEL eCW1 ([facility], [facility]–1983) 9.2 8.5-10.1 CALCIUM LEVEL eCW1 ([facility], [facility]) 27 21-32 CARBON DIOXIDE LEVEL eCW1 ([facility], [facility]–1983) 4.1 3.5-5.1 POTASSIUM SERUM eCW1 (Replaced by [facility]) ID Date Data Source [id number] 08/05/2020 12:00:00 AM EST eCW1 ([facility]) Name Value Range Interpretation Code Description Data Radha rce(s) Supporting Document(s) Hemoglobin A1c/Hemoglobin.total in Blood 10.9 HEMOGLOBIN A1c eCW1 ([facility], [facility]) ID Date Data Source LIPID PANEL (CARDIAC RISK) 05/27/2020 10:07:26 AM EDT eCW1 ( [facility]) Name Value Range Interpretation Code Description Data Radha rce(s) Supporting Document(s) Cholesterol [Moles/volume] in Serum or Plasma 241 CHOLESTEROL LEVEL eCW1 ([facility], [facility]) Triglyceride [Mass/volume] in Serum or Plasma by calculation 245 TRIGLYCERIDES LEVEL eCW1 ([facility]) Cholesterol in HDL [Moles/volume] in Serum or Plasma 37 HDL CHOLESTEROL eCW1 ([facility], [facility]) Cholesterol in LDL [Mass/volume] in Serum or Plasma by calculation 155 LDL CHOLESTEROL eCW1 ([facility], [facility]) 204 NON-HDL-C eCW1 ([facility]) 6.513 CHOLESTEROL RISK RATIO eCW1 ([facility]) ID Date Data Source PT-INR Fingerstick 05/23/2020 06:00:33 AM EDT eCW1 ([facility]) Name Value Range Interpretation Code Description Data Radha rce(s) Supporting Document(s) Cesia Tovar LPN Verified Patient's N sukumar and eCW1 ([facility], [facility]) 2.6 INR eCW1 ([facility]) 7.5mg ROW Current Dose 2 eCW1 ([facility], [facility]) 5mg tabs Tab Strength eCW1 ([facility]) 10mg Tues, Victor M, Sun Current Dose 1 eCW1 ([facility], [facility]) yes Internal QC Acceptable (Y/N) e CW1 ([facility], [facility]) DVT Indication for Anticoagulation eCW1 ([facility], [facility]) no Recent Bleeding eCW1 (Replaced by [facility]) 2-3 Therapeutic Range eCW1 ([facility]) Education Given (Date / Initia ls) eCW1 ([facility], [facility]) 6 weeks Next PT-INR eCW1 ([facility]) New Dose 2 eCW1 ([facility]) Weekly Total eCW1 ([facility]) no change New Dose 1 eCW1 ([facility]) - eCW1 ([facility]) Procedure Social History Code Duration Value Status Description Data Source(s ) Smoking 05/16/2021 12:00:00 AM EDT Current Smoker completed Curre nt Smoker eCW1 ([facility]) Smoking 05/16/2021 12:00:00 AM EDT Current Smoker completed Curre nt Smoker eCW1 ([facility], [facility]) Smoking 05/08/2021 12:00:00 AM EDT Current Smoker completed Curre nt Smoker eCW1 ([facility], [facility]) Smoking 03/27/2021 12:00:00 AM EDT Current Smoker completed Curre nt Smoker eCW1 ([facility], [facility]) Smoking 02/13/2021 12:00:00 AM EDT Current Smoker completed Curre nt Smoker eCW1 ([facility], [facility]) Smoking 02/13/2021 12:00:00 AM EDT Current Smoker completed Curre nt Smoker eCW1 ([facility], [facility]) Smoking 02/13/2021 12:00:00 AM EDT Current Smoker completed Curre nt Smoker eCW1 ([facility], [facility]) Smoking 01/16/2021 12:00:00 AM EDT Current Smoker completed Curre nt Smoker eCW1 ([facility], [facility]) Smoking 01/16/2021 12:00:00 AM EDT Current Smoker completed Curre nt Smoker eCW1 ([facility], [facility]) Smoking 12/12/2020 12:00:00 AM EDT Current Smoker completed Curre nt Smoker eCW1 ([facility], [facility]) Smoking 11/14/2020 12:00:00 AM EDT Current Smoker completed Curre nt Smoker eCW1 ([facility], [facility]) Smoking 10/03/2020 12:00:00 AM EST Current Smoker completed Curre nt Smoker eCW1 ([facility], [facility]) Smoking 10/03/2020 12:00:00 AM EST Current Smoker completed Curre nt Smoker eCW1 ([facility]) Smoking 10/03/2020 12:00:00 AM EST Current Smoker completed Curre nt Smoker eCW1 ([facility], [facility]) Smoking 08/25/2020 12:00:00 AM EST Current Smoker completed Curre nt Smoker eCW1 ([facility], [facility]) Smoking 08/25/2020 12:00:00 AM EST Current Smoker completed Curre nt Smoker eCW1 ([facility], [facility]) Smoking 08/25/2020 12:00:00 AM EST Current Smoker completed Curre nt Smoker eCW1 ([facility], [facility]) Smoking 06/14/2020 12:00:00 AM EDT Current Smoker completed Curre nt Smoker eCW1 ([facility]) Smoking 06/14/2020 12:00:00 AM EDT Current Smoker completed Curre nt Smoker eCW1 ([facility]ly [facility], [facility]) Vital Signs ID Date Data Source UNK Name Value Range Interpretation Code Description Data Source(s) Body weight 276 [lb_av] 276 [lb_av] eCW1 (Formerly [facility]) Body height 71 [in_i] 71 [in_i] eCW1 ([facility]) Body mass index (BMI) [Ratio] 38.49 kg/m2 38.49 kg/m2 eCW1 ([facility]ly [facility], [facility]) Heart rate 79 /min 79 /min eCW1 (Replaced by [facility]) Respiratory rate 20 /min 20 /min eCW1 ([facility]) Body temperature 97 [degF] 97 [degF] eCW1 ([facility]) Systolic blood pressure 130 mm[Hg] 130 mm[Hg] e CW1 ([facility], [facility]) Diastolic blood pressure 80 mm[Hg] 80 mm[Hg] eCW1 ([facility], [facility]) Systolic blood pressure 126 mm[Hg] 126 mm[Hg] e CW1 ([facility], [facility]1983) Diastolic blood pressure 80 mm[Hg] 80 mm[Hg] eCW1 ([facility], [facility]) Body weight 279 [lb_av] 279 [lb_av] eCW1 ([facility]ly [facility]) Body weight 126.55 kg 126.55 kg eCW1 ([facility]) Body height 71 [in_i] 71 [in_i] eCW1 ([facility]) Body mass index (BMI) [Ratio] 38.91 kg/m2 38.91 kg/m2 eCW1 ([facility], [facility]) Heart rate 67 /min 67 /min eCW1 (Replaced by [facility]) Respiratory rate 20 /min 20 /min eCW1 ([facility]) Body temperature 97.9 [degF] 97.9 [degF] eCW1 ( [facility], [facility]) Body weight 280 [lb_av] 280 [lb_av] eCW1 ([facility]ly [facility]) Diastolic blood pressure 80 mm[Hg] 80 mm[Hg] eCW1 ([facility], [facility]) Body weight 127.01 kg 127.01 kg eCW1 ([facility]) Body height 71 [in_i] 71 [in_i] eCW1 ([facility]) Body mass index (BMI) [Ratio] 39.05 kg/m2 39.05 kg/m2 eCW1 ([facility], [facility]) Heart rate 66 /min 66 /min eCW1 (Replaced by [facility]) Respiratory rate 20 /min 20 /min eCW1 ([facility]) Body temperature 97.4 [degF] 97.4 [degF] eCW1 ( [facility], [facility]) Systolic blood pressure 142 mm[Hg] 142 mm[Hg] e CW1 ([facility], [facility]) Systolic blood pressure 126 mm[Hg] 126 mm[Hg] M EDENT ([facility]) Diastolic blood pressure 78 mm[Hg] 78 mm[Hg] [facility] ([facility]) Body height 71 [in_i] 71 [in_i] [facility] ([facility]) 5'11" Body weight 284.00 [lb_av] 284.00 [lb_av] MEDEN T ([facility]) Body mass index (BMI) [Ratio] 39.6 kg/m2 39.6 k g/m2 [facility] ([facility]) [place] body weight 172 [lb_av] 172 [lb_av] MEDEN T ([facility]) Body weight 128.822 kg 128.822 kg [facility] ([facility]) Body surface area Derived from formula 2.45 m2 2.45 m2 [facility] ([facility]) Body weight 281 [lb_av] 281 [lb_av] eCW1 ([facility]ly [facility]) Body height 71 [in_i] 71 [in_i] eCW1 ([facility]) Body mass index (BMI) [Ratio] 39.19 kg/m2 39.19 kg/m2 W1 ([facility]ly [facility], [facility]1983) Heart rate 93 /min 93 /min eCW1 (Replaced by [facility]) Respiratory rate 20 /min 20 /min eCW1 ([facility]) Body temperature 97.4 [degF] 97.4 [degF] eCW1 ( [facility], [facility]) Systolic blood pressure 122 mm[Hg] 122 mm[Hg] e CW1 ([facility], [facility]1983) Diastolic blood pressure 80 mm[Hg] 80 mm[Hg] eCW1 ([facility], [facility]) Body weight 277 [lb_av] 277 [lb_av] eCW1 ([facility]ly [facility]) Body height 71 [in_i] 71 [in_i] eCW1 ([facility]) Body mass index (BMI) [Ratio] 38.63 kg/m2 38.63 kg/m2 eCW1 ([facility], [facility]) Heart rate 79 /min 79 /min eCW1 (Replaced by [facility]) Respiratory rate 20 /min 20 /min eCW1 ([facility]) Body temperature 97.0 [degF] 97.0 [degF] eCW1 ( [facility], [facility]) Systolic blood pressure 118 mm[Hg] 118 mm[Hg] e CW1 ([facility], [facility]) Diastolic blood pressure 78 mm[Hg] 78 mm[Hg] eCW1 ([facility], [facility]) Body weight 282 [lb_av] 282 [lb_av] eCW1 ([facility]ly [facility]) Body height 71 [in_i] 71 [in_i] eCW1 ([facility]) Body mass index (BMI) [Ratio] 39.33 kg/m2 39.33 kg/m2 eCW1 ([facility], [facility]) Heart rate 73 /min 73 /min eCW1 (Replaced by [facility]) Respiratory rate 20 /min 20 /min eCW1 ([facility]) Body temperature 97.1 [degF] 97.1 [degF] eCW1 ( [facility], [facility]) Systolic blood pressure 120 mm[Hg] 120 mm[Hg] e CW1 ([facility], [facility]) Diastolic blood pressure 80 mm[Hg] 80 mm[Hg] eCW1 ([facility], [facility]) Body weight 282 [lb_av] 282 [lb_av] eCW1 ([facility]ly [facility]) Body height 71 [in_i] 71 [in_i] eCW1 ([facility]) Body mass index (BMI) [Ratio] 39.33 kg/m2 39.33 kg/m2 eCW1 ([facility], [facility]) Heart rate 82 /min 82 /min eCW1 (Replaced by [facility]) Respiratory rate 20 /min 20 /min eCW1 ([facility]) Body temperature 97.4 [degF] 97.4 [degF] eCW1 ( [facility], [facility]) Systolic blood pressure 120 mm[Hg] 120 mm[Hg] e CW1 ([facility], [facility]) Diastolic blood pressure 80 mm[Hg] 80 mm[Hg] eCW1 ([facility], [facility]) Body weight 274 [lb_av] 274 [lb_av] eCW1 ([facility]ly [facility]) Body height 71 [in_i] 71 [in_i] eCW1 ([facility]) Body mass index (BMI) [Ratio] 38.21 kg/m2 38.21 kg/m2 eCW1 ([facility], [facility]) Heart rate 86 /min 86 /min eCW1 (Replaced by [facility]) Respiratory rate 18 /min 18 /min eCW1 ([facility]) Body temperature 97.4 [degF] 97.4 [degF] eCW1 ( [facility], [facility]) Systolic blood pressure 118 mm[Hg] 118 mm[Hg] e CW1 ([facility], [facility]) Diastolic blood pressure 74 mm[Hg] 74 mm[Hg] eCW1 ([facility], [facility]) Body weight 277 [lb_av] 277 [lb_av] eCW1 ([facility]ly [facility]) Body height 71 [in_i] 71 [in_i] eCW1 ([facility]) Body mass index (BMI) [Ratio] 38.63 kg/m2 38.63 kg/m2 eCW1 ([facility], [facility]) Heart rate 78 /min 78 /min eCW1 (Replaced by [facility]) Respiratory rate 16 /min 16 /min eCW1 ([facility]) Body temperature 98.2 [degF] 98.2 [degF] eCW1 ( [facility], [facility]) Systolic blood pressure 124 mm[Hg] 124 mm[Hg] e CW1 ([facility], [facility]) Diastolic blood pressure 74 mm[Hg] 74 mm[Hg] eCW1 ([facility], [facility])
[2021-06-24] MEDS ORDERED: propofoL 200 MG/20 ML VIAL As Ordered ONE ×2 (08:05→08:06)
--- NOTE | 2021-06-24 08:35 | ROOR ---
Patient Name: Bill Ortiz Procedure Date: 06/24/2021 8:04 AM Date of : 1965 Age: 55 Room: [id number] Gender: Male Note Status: Finalized Procedure: Colonoscopy Indications: High risk colon cancer surveillance: Personal history of colonic polyps Providers: Mickey Hernandez MD Referring MD: Nazia BENJAMIN Requesting Provider: Medicines: Monitored Anesthesia Care Complications: No immediate complications. Procedure: Pre-Anesthesia Assessment: - The heart rate, respiratory rate, oxygen saturations, blood pressure, adequacy of pulmonary ventilation, and response to care were monitored throughout the procedure. The Colonoscope was introduced through the anus and advanced to the cecum, identified by appendiceal orifice and ileocecal valve. The colonoscopy was performed without difficulty. The patient tolerated the procedure well. The quality of the bowel preparation was good. Findings: The perianal and digital rectal examinations were normal. Five sessile polyps were found in the sigmoid colon, ascending colon and ileocecal valve. The polyps were diminutive in size. These polyps were removed with a cold snare. Resection and retrieval were complete. Mild sigmoid diverticulosis and small internal hemorrhoids. The exam was otherwise without abnormality on direct and retroflexion views. Impression: - Five diminutive polyps in the sigmoid colon, in the ascending colon and at the ileocecal valve, removed with a cold snare. Resected and retrieved. - Mild sigmoid diverticulosis and small internal hemorrhoids. - The examination was otherwise normal on direct and retroflexion views. Recommendation: - Repeat colonoscopy in 3 years for surveillance. - Resume Coumadin (warfarin) at prior dose today. Refer to primary physician for further adjustment of therapy. Procedure Code(s): --- Professional --- 57882, Colonoscopy, flexible; with removal of tumor(s), polyp(s), or other lesion(s) by snare technique Diagnosis Code(s): --- Professional --- K63.5, Polyp of colon Z86.010, Personal history of colonic polyps CPT copyright 2019 [employer]. All rights reserved. The codes documented in this report are preliminary and upon electric mule driver review may be revised to meet current compliance requirements. Mickey Hernandez MD Mickey Hernandez MD 06/24/2021 8:34:41 AM Electronically signed by Mickey Hernandez MD Number of Addenda: 0 Note Initiated On: 06/24/2021 8:04 AM Estimated Blood Loss: Estimated blood loss: none.
[2021-06-24 08:54] VITALS: BP 130/78
== END 2021-06-24 08:56 | disposition home or self-care (01) ==
LOC: M OPP 06:42
PROVIDERS: ATTEND Internal Medicine Gastroenterology
DX: Z12.11 Encounter for screening for malignant neoplasm of colon (principal); Z86.010 Personal history of colon polyps; Z80.0 Family history of malignant neoplasm of digestive organs; K63.5 Polyp of colon; K57.30 Diverticulosis of large intestine without perforation or abscess without bleeding; K64.8 Other hemorrhoids; Z79.1 Long term (current) use of non-steroidal anti-inflammatories (NSAID); Z79.84 Long term (current) use of oral hypoglycemic drugs; Z79.899 Other long term (current) drug therapy; F17.210 Nicotine dependence, cigarettes, uncomplicated; Z80.3 Family history of malignant neoplasm of breast; Z86.711 Personal history of pulmonary embolism; Z86.718 Personal history of other venous thrombosis and embolism; Z95.828 Presence of other vascular implants and grafts

== ENCOUNTER → 2021-07-18 | Outpatient (CLI) | payer OTHER ==
[~2021-07-18] MED LIST changes: -NS 1,000 ML IV ONE
[2021-07-18 09:59] LABS: BASO # 0.1 10^3/uL (0.0-0.2); BASO % 1.2 % (0.0-1.0); EOS # 0.2 10^3/uL (0.0-0.5); EOS % 2.3 % (0.0-3.0); HEMATOCRIT 50.5 % (42.0-52.0); HEMOGLOBIN 16.8 g/dl (13.5-17.5); LYMPH # 2.3 10^3/uL (1.5-5.0); LYMPH % 33.6 % (24.0-44.0); MEAN CORPUSCULAR HEMOGLOBIN 29.1 pg (27.0-33.0); MEAN CORPUSCULAR HGB CONC 33.3 g/dl (32.0-36.5); MEAN CORPUSCULAR VOLUME 87.5 fl (80.0-96.0); MONO # 0.7 10^3/uL (0.0-0.8); MONO % 10.2 % (2.0-8.0); NEUTROPHILS # 3.6 10^3/uL (1.5-8.5); PLATELET COUNT, AUTOMATED 285 10^3/uL (150-450); RED BLOOD COUNT 5.77 10^6/uL (4.30-6.10); WHITE BLOOD COUNT 6.8 10^3/uL (4.0-10.0)
[2021-07-18 10:07] LABS: INR 2.14; PROTHROMBIN TIME 24.3 SECONDS (12.7-14.5)
== END ==
LOC: M WUC 08:40
PROVIDERS: ATTEND Physician Assistant Medical
DX: Z51.81 Encounter for therapeutic drug level monitoring (principal); Z79.899 Other long term (current) drug therapy

== ENCOUNTER → 2021-09-22 | Outpatient (CLI) | payer OTHER ==
[~2021-09-22] MED LIST changes: -OMEP-221 PO; +OMEP40CA5 PO
[2021-09-22 10:00] LABS: INR 3.28; PROTHROMBIN TIME 33.7 SECONDS (12.7-14.5)
[2021-09-22 10:30] LABS: ALBUMIN 3.8 GM/DL (3.2-5.2); ALT/SGPT 21 U/L (12-78); BILIRUBIN,TOTAL 0.4 MG/DL (0.2-1.0); BLOOD UREA NITROGEN 15 MG/DL (7-18); CALCIUM LEVEL 9.2 MG/DL (8.5-10.1); CARBON DIOXIDE LEVEL 28 MEQ/L (21-32); CHLORIDE LEVEL 98 MEQ/L (98-107); CHOLESTEROL LEVEL 224 MG/DL (<200); CHOLESTEROL RISK RATIO 6.222 (<5); CREATININE FOR GFR 1.07 MG/DL (0.70-1.30); GLOMERULAR FILTRATION RATE > 60.0 (>56); GLUCOSE, FASTING 258 MG/DL (70-100); HDL CHOLESTEROL 36 MG/DL (>40); LDL CHOLESTEROL 118 MG/DL (<100); NON-HDL-C 188 MG/DL; POTASSIUM SERUM 4.2 MEQ/L (3.5-5.1); SODIUM LEVEL 133 MEQ/L (136-145); TOTAL PROTEIN 7.3 GM/DL (6.4-8.2); TRIGLYCERIDES LEVEL 351 MG/DL (<150)
== END ==
LOC: M WUC 08:12
PROVIDERS: ATTEND Physician Assistant Medical
DX: Z51.81 Encounter for therapeutic drug level monitoring (principal); Z86.718 Personal history of other venous thrombosis and embolism

== ENCOUNTER → 2021-10-03 | Outpatient (CLI) | payer OTHER ==
[2021-10-03 10:41] LABS: INR 1.97; PROTHROMBIN TIME 22.8 SECONDS (12.7-14.5)
[2021-10-03 11:17] LABS: HEMOGLOBIN A1c 9.9 %
== END ==
LOC: M WUC 07:54
PROVIDERS: ATTEND Physician Assistant Medical
DX: E11.9 Type 2 diabetes mellitus without complications (principal); Z51.81 Encounter for therapeutic drug level monitoring

== ENCOUNTER → 2021-11-03 | Outpatient (CLI) | payer OTHER ==
[2021-11-03 10:37] LABS: INR 2.43; PROTHROMBIN TIME 26.8 SECONDS (12.7-14.5)
[2021-11-03 12:19] LABS: HEMOGLOBIN A1c 9.8 %
[2021-11-03 13:02] LABS: ALT/SGPT 26 U/L (12-78); BILIRUBIN,TOTAL 0.5 MG/DL (0.2-1.0); BLOOD UREA NITROGEN 18 MG/DL (7-18); CALCIUM LEVEL 9.6 MG/DL (8.5-10.1); CARBON DIOXIDE LEVEL 27 MEQ/L (21-32); CHLORIDE LEVEL 98 MEQ/L (98-107); CREATININE FOR GFR 1.15 MG/DL (0.70-1.30); GLOMERULAR FILTRATION RATE > 60.0 (>56); GLUCOSE, FASTING 257 MG/DL (70-100); SODIUM LEVEL 134 MEQ/L (136-145); TOTAL PROTEIN 7.3 GM/DL (6.4-8.2)
== END ==
LOC: M WUC 07:58
PROVIDERS: ATTEND Physician Assistant Medical
DX: Z86.718 Personal history of other venous thrombosis and embolism (principal); E11.9 Type 2 diabetes mellitus without complications

== ENCOUNTER → 2022-02-05 | Outpatient (CLI) | payer OTHER ==
[2022-02-05 10:03] LABS: HEMOGLOBIN A1c 7.6 %
== END ==
LOC: M WUC 08:09
PROVIDERS: ATTEND Physician Assistant Medical
DX: E11.9 Type 2 diabetes mellitus without complications (principal)

== ENCOUNTER → 2022-02-05 | Outpatient (CLI) | payer OTHER ==
[2022-02-05 09:55] LABS: INR 2.58
== END ==
LOC: M WUC 08:04
PROVIDERS: ATTEND Physician Assistant
DX: Z51.81 Encounter for therapeutic drug level monitoring (principal)

== ENCOUNTER → 2022-03-12 | Outpatient (CLI) | payer OTHER ==
[2022-03-12 10:00] LABS: INR 2.5; PROTHROMBIN TIME 27.4 SECONDS (12.7-14.5)
== END ==
LOC: M WUC 08:01
PROVIDERS: ATTEND Physician Assistant Medical
DX: Z86.718 Personal history of other venous thrombosis and embolism (principal)

== ENCOUNTER → 2022-05-14 | Outpatient (REF) | payer OTHER ==
[2022-05-14 12:52] LABS: CREATININE, URINE 50.8 MG/DL; MALB URINE SIEMENS 6.6 MG/L; MAU/CREAT RATIO 12.9 MCG/MG (0.0-30.0)
== END ==
LOC: M SFHCPLAZ 09:41
PROVIDERS: ATTEND Physician Assistant Medical
DX: E11.9 Type 2 diabetes mellitus without complications (principal)

== ENCOUNTER → 2022-11-12 | Outpatient (CLI) | payer OTHER ==
[2022-11-12 11:11] LABS: INR 1.67
[2022-11-12 11:14] LABS: CPK CREATINE PHOSPHOKINASE 57 U/L (46-171)
[2022-11-12 11:15] LABS: ALBUMIN 3.7 G/DL (3.2-5.2); ALKALINE PHOSPHATASE 158 U/L (46-116); ALT/SGPT 70 U/L (7.0-40); AST/SGOT 17 U/L (<34); BILIRUBIN,TOTAL 0.5 MG/DL (0.3-1.2); BLOOD UREA NITROGEN 15 MG/DL (9-23); CALCIUM LEVEL 8.8 MG/DL (8.5-10.1); CARBON DIOXIDE LEVEL 32 MMOL/L (20-31); CHLORIDE LEVEL 95 MMOL/L (98-107); CHOLESTEROL LEVEL 201 MG/DL (<200); CHOLESTEROL RISK RATIO 5.72 (<5); CREATININE FOR GFR 0.71 MG/DL (0.70-1.30); GLOMERULAR FILTRATION RATE > 60.0 (>56); GLUCOSE, FASTING 333 MG/DL (60-100); HDL CHOLESTEROL 35.1 MG/DL (>40); NON-HDL-C 165.9 MG/DL; POTASSIUM SERUM 4.4 MMOL/L (3.5-5.1); SODIUM LEVEL 133 MMOL/L (136-145); TOTAL PROTEIN 6.8 G/DL (5.7-8.2); TRIGLYCERIDES LEVEL 443 MG/DL (<150)
== END ==
LOC: M WUC 08:03
PROVIDERS: ATTEND Physician Assistant Medical
DX: E78.5 Hyperlipidemia, unspecified (principal)

== ENCOUNTER → 2022-12-01 | Outpatient (CLI) | payer OTHER ==
[2022-12-01 11:27] LABS: INR 2.03; PROTHROMBIN TIME 23.3 SECONDS (12.5-14.5)
== END ==
LOC: M WUC 08:01
PROVIDERS: ATTEND Physician Assistant Medical
DX: Z86.718 Personal history of other venous thrombosis and embolism (principal)

== ENCOUNTER → 2023-01-07 | Outpatient (REF) | payer OTHER ==
[2023-01-07 10:43] LABS: INR 0.98; PROTHROMBIN TIME 13.2 SECONDS (12.5-14.5)
== END ==
LOC: M LABWUC 09:35
PROVIDERS: ATTEND Physician Assistant Medical
DX: Z86.718 Personal history of other venous thrombosis and embolism (principal)

== ENCOUNTER → 2023-01-08 | Outpatient (REF) | payer OTHER | LOC: M SFHCPLAZ 13:07 | PROVIDERS: ATTEND Physician Assistant Medical | DX: Z53.9 Procedure and treatment not carried out, unspecified reason (principal) ==

== ENCOUNTER → 2023-01-21 | Outpatient (CLI) | payer OTHER ==
[2023-01-21 10:18] LABS: INR 2.2; PROTHROMBIN TIME 24.8 SECONDS (12.5-14.5)
[2023-01-21 10:32] LABS: HEMOGLOBIN A1c 9.6 % (4.0-6.0)
== END ==
LOC: M WUC 07:57
PROVIDERS: ATTEND Physician Assistant Medical
DX: E11.9 Type 2 diabetes mellitus without complications (principal); Z51.81 Encounter for therapeutic drug level monitoring

== ENCOUNTER → 2023-04-01 | Outpatient (CLI) | payer OTHER ==
[2023-04-01 10:21] LABS: INR 2.37; PROTHROMBIN TIME 25.3 SECONDS (12.5-14.5)
[2023-04-01 11:01] LABS: HEMOGLOBIN A1c 7.5 % (4.0-6.0)
== END ==
LOC: M WUC 08:05
PROVIDERS: ATTEND Physician Assistant Medical
DX: Z51.81 Encounter for therapeutic drug level monitoring (principal); Z86.718 Personal history of other venous thrombosis and embolism; E11.9 Type 2 diabetes mellitus without complications

== ENCOUNTER → 2023-06-17 | Outpatient (CLI) | payer OTHER ==
[2023-06-17 10:57] LABS: INR 2.57; PROTHROMBIN TIME 26.7 SECONDS (12.5-14.5)
== END ==
LOC: M WUC 08:05
PROVIDERS: ATTEND Physician Assistant
DX: Z79.01 Long term (current) use of anticoagulants (principal)

== ENCOUNTER → 2023-09-17 | Outpatient (REF) | payer OTHER, SELFPAY ==
[2023-09-17 10:51] LABS: INR 1.91; PROTHROMBIN TIME 21.2 SECONDS (12.5-14.5)
== END ==
LOC: M LABWUC 09:42
PROVIDERS: ATTEND Physician Assistant Medical
DX: Z51.81 Encounter for therapeutic drug level monitoring (principal); Z86.718 Personal history of other venous thrombosis and embolism

== ENCOUNTER → 2023-11-25 | Outpatient (CLI) | payer OTHER ==
[2023-11-25 10:48] LABS: INR 1.64; PROTHROMBIN TIME 18.8 SECONDS (12.5-14.5)
[2023-11-25 11:03] LABS: ALBUMIN 3.5 G/DL (3.2-5.2); ALKALINE PHOSPHATASE 129 U/L (46-116); ALT/SGPT 69 U/L (7.0-40); AST/SGOT 31 U/L (<34); BILIRUBIN,TOTAL 0.5 MG/DL (0.3-1.2); BLOOD UREA NITROGEN 12 MG/DL (9-23); CALCIUM LEVEL 8.8 MG/DL (8.5-10.1); CARBON DIOXIDE LEVEL 30 MMOL/L (20-31); CHLORIDE LEVEL 104 MMOL/L (98-107); CHOLESTEROL LEVEL 189 MG/DL (<200); CHOLESTEROL RISK RATIO 5.17 (<5); CREATININE FOR GFR 0.73 MG/DL (0.70-1.30); GLOMERULAR FILTRATION RATE > 60.0 (>56); GLUCOSE, FASTING 251 MG/DL (60-100); HDL CHOLESTEROL 36.5 MG/DL (>40); LDL CHOLESTEROL 84.7 MG/DL (<100); NON-HDL-C 152.5 MG/DL; POTASSIUM SERUM 3.9 MMOL/L (3.5-5.1); SODIUM LEVEL 138 MMOL/L (136-145); TOTAL PROTEIN 6.6 G/DL (5.7-8.2); TRIGLYCERIDES LEVEL 339 MG/DL (<150)
[2023-11-25 11:05] LABS: HEMOGLOBIN A1c 9.8 % (4.0-6.0)
== END ==
LOC: M WUC 08:04
PROVIDERS: ATTEND Physician Assistant Medical
DX: E11.9 Type 2 diabetes mellitus without complications (principal); E78.5 Hyperlipidemia, unspecified

== ENCOUNTER → 2023-12-09 | Outpatient (REF) | payer OTHER ==
[2023-12-09 11:19] LABS: INR 1.31; PROTHROMBIN TIME 15.9 SECONDS (12.5-14.5)
== END ==
LOC: M LABWUC 10:08
PROVIDERS: ATTEND Physician Assistant Medical
DX: Z86.718 Personal history of other venous thrombosis and embolism (principal)

== ENCOUNTER → 2023-12-23 | Outpatient (REF) | payer OTHER ==
[2023-12-23 10:18] LABS: HEMOGLOBIN A1c 9.2 % (4.0-6.0)
[2023-12-23 10:32] LABS: INR 2.16; PROTHROMBIN TIME 23.3 SECONDS (12.5-14.5)
== END ==
LOC: M LABWUC 09:38
PROVIDERS: ATTEND Physician Assistant Medical
DX: E11.9 Type 2 diabetes mellitus without complications (principal); Z86.718 Personal history of other venous thrombosis and embolism

== ENCOUNTER → 2024-01-21 | Outpatient (CLI) | payer OTHER ==
[2024-01-21 11:03] LABS: INR 1.94; PROTHROMBIN TIME 21.4 SECONDS (12.5-14.5)
== END ==
LOC: M WUC 08:02
PROVIDERS: ATTEND Physician Assistant Medical
DX: Z79.01 Long term (current) use of anticoagulants (principal); Z86.718 Personal history of other venous thrombosis and embolism

== ENCOUNTER → 2024-02-22 | Outpatient (CLI) | payer OTHER ==
[2024-02-22 10:40] LABS: INR 2.22; PROTHROMBIN TIME 23.8 SECONDS (12.5-14.5)
[2024-02-22 10:45] LABS: HEMOGLOBIN A1c 9.3 % (4.0-6.0)
== END ==
LOC: M WUC 08:03
PROVIDERS: ATTEND Physician Assistant Medical
DX: Z79.01 Long term (current) use of anticoagulants (principal); E11.9 Type 2 diabetes mellitus without complications

== ENCOUNTER → 2024-03-22 | Outpatient (CLI) | payer OTHER ==
[2024-03-22 09:53] LABS: INR 2.12
[2024-03-22 09:54] LABS: ALBUMIN 3.4 G/DL (3.2-5.2); ALKALINE PHOSPHATASE 101 U/L (46-116); ALT/SGPT 26 U/L (7.0-40); AST/SGOT 10 U/L (<34); BILIRUBIN,TOTAL 0.4 MG/DL (0.3-1.2); BLOOD UREA NITROGEN 11 MG/DL (9-23); CALCIUM LEVEL 8.6 MG/DL (8.5-10.1); CARBON DIOXIDE LEVEL 25 MMOL/L (20-31); CHLORIDE LEVEL 104 MMOL/L (98-107); CREATININE FOR GFR 0.81 MG/DL (0.70-1.30); GLOMERULAR FILTRATION RATE > 60.0 (>56); GLUCOSE, FASTING 244 MG/DL (60-100); SODIUM LEVEL 138 MMOL/L (136-145); TOTAL PROTEIN 6.8 G/DL (5.7-8.2)
[2024-03-22 10:02] LABS: HEMOGLOBIN A1c 8.9 % (4.0-6.0)
== END ==
LOC: M WUC 08:03
PROVIDERS: ATTEND Physician Assistant Medical
DX: E11.9 Type 2 diabetes mellitus without complications (principal); Z86.718 Personal history of other venous thrombosis and embolism

== ENCOUNTER → 2024-05-11 | Outpatient (CLI) | payer OTHER ==
[2024-05-11 10:18] LABS: INR 2.29; PROTHROMBIN TIME 24.4 SECONDS (12.5-14.5)
== END ==
LOC: M WUC 08:02
PROVIDERS: ATTEND Nurse Practitioner Family
DX: Z51.81 Encounter for therapeutic drug level monitoring (principal)

== ENCOUNTER → 2024-06-15 | Outpatient (CLI) | payer OTHER ==
[2024-06-15 11:45] LABS: INR 1.81; PROTHROMBIN TIME 21.1 SECONDS (12.5-14.5)
[2024-06-15 11:50] LABS: HEMOGLOBIN A1c 9.7 % (4.0-6.0)
== END ==
LOC: M WUC 08:13
PROVIDERS: ATTEND Physician Assistant Medical
DX: Z86.718 Personal history of other venous thrombosis and embolism (principal)

== ENCOUNTER → 2024-08-22 | Outpatient (CLI) | payer OTHER ==
[2024-08-22 11:06] LABS: INR 1.61; PROTHROMBIN TIME 19.3 SECONDS (12.5-14.5)
[2024-08-22 11:08] LABS: BASO # 0.1 10^3/uL (0.0-0.2); BASO % 0.9 % (0.0-1.0); EOS # 0.1 10^3/uL (0.0-0.5); HEMATOCRIT 52.3 % (42.0-52.0); HEMOGLOBIN 17.7 g/dl (13.5-17.5); LYMPH # 3.4 10^3/uL (1.5-5.0); LYMPH % 29.8 % (24.0-44.0); MEAN CORPUSCULAR HEMOGLOBIN 29.2 pg (27.0-33.0); MEAN CORPUSCULAR HGB CONC 33.8 g/dl (32.0-36.5); MEAN CORPUSCULAR VOLUME 86.2 fl (80.0-96.0); MONO # 0.6 10^3/uL (0.0-0.8); MONO % 5.7 % (2.0-8.0); NEUTROPHILS % 62.1 % (36.0-66.0); PLATELET COUNT, AUTOMATED 267 10^3/uL (150-450); RED BLOOD COUNT 6.07 10^6/uL (4.30-6.10); WHITE BLOOD COUNT 11.3 10^3/uL (4.0-10.0)
[2024-08-22 11:19] LABS: HEMOGLOBIN A1c 10.6 % (4.0-6.0)
[2024-08-22 12:01] LABS: PSA SCREENING 0.53 NG/ML (< 4.00)
[2024-08-22 12:24] LABS: ALBUMIN 3.8 G/DL (3.2-5.2); ALKALINE PHOSPHATASE 138 U/L (40-129); ALT/SGPT 67 U/L (7.0-40); AST/SGOT 14 U/L (<34); BILIRUBIN,TOTAL 0.5 MG/DL (0.3-1.2); BLOOD UREA NITROGEN 20 MG/DL (9-23); CALCIUM LEVEL 9.7 MG/DL (8.5-10.1); CARBON DIOXIDE LEVEL 28 MMOL/L (20-31); CHLORIDE LEVEL 95 MMOL/L (98-107); CHOLESTEROL LEVEL 385 MG/DL (<200); CREATININE FOR GFR 0.81 MG/DL (0.70-1.30); GLOMERULAR FILTRATION RATE > 60.0 (>56); GLUCOSE, FASTING 366 MG/DL (60-100); HDL CHOLESTEROL 38.5 MG/DL (>40); NON-HDL-C 346.5 MG/DL; POTASSIUM SERUM 4.2 MMOL/L (3.5-5.1); SODIUM LEVEL 132 MMOL/L (136-145); TOTAL PROTEIN 7.5 G/DL (5.7-8.2); TRIGLYCERIDES LEVEL 1120 MG/DL (<150)
== END ==
LOC: M WUC 08:03
PROVIDERS: ATTEND Physician Assistant Medical
DX: Z86.718 Personal history of other venous thrombosis and embolism (principal); Z51.81 Encounter for therapeutic drug level monitoring
CPT/HCPCS: 36415; 80053; 80061; 83036; 85025; 85610; G0103

== ENCOUNTER → 2024-08-31 | Outpatient (CLI) | payer OTHER ==
[2024-08-31 10:22] LABS: INR 2.31; PROTHROMBIN TIME 25.4 SECONDS (12.5-14.5)
== END ==
LOC: M WUC 08:02
PROVIDERS: ATTEND Physician Assistant Medical
DX: Z86.718 Personal history of other venous thrombosis and embolism (principal)

== ENCOUNTER → 2024-09-28 | Outpatient (CLI) | payer OTHER ==
[2024-09-28 09:49] LABS: INR 1.58; PROTHROMBIN TIME 19.1 SECONDS (12.5-14.5)
[2024-09-28 10:58] LABS: HEMOGLOBIN A1c 10.1 % (4.0-6.0)
== END ==
LOC: M WUC 08:01
PROVIDERS: ATTEND Physician Assistant Medical
DX: E11.9 Type 2 diabetes mellitus without complications (principal); Z51.81 Encounter for therapeutic drug level monitoring; Z79.01 Long term (current) use of anticoagulants; Z86.718 Personal history of other venous thrombosis and embolism; Z95.828 Presence of other vascular implants and grafts

== ENCOUNTER → 2024-10-13 | Outpatient (CLI) | payer OTHER ==
[2024-10-13 10:14] LABS: INR 1.81; PROTHROMBIN TIME 21.2 SECONDS (12.5-14.5)
== END ==
LOC: M WUC 08:02
PROVIDERS: ATTEND Physician Assistant Medical
DX: Z86.718 Personal history of other venous thrombosis and embolism (principal)

== ENCOUNTER → 2024-10-19 | Outpatient (CLI) | payer OTHER ==
[2024-10-19 12:35] LABS: INR 1.93; PROTHROMBIN TIME 22.2 SECONDS (12.5-14.5)
== END ==
LOC: M WUC 08:02
PROVIDERS: ATTEND Physician Assistant Medical
DX: Z86.718 Personal history of other venous thrombosis and embolism (principal)

== ENCOUNTER → 2024-11-02 | Outpatient (CLI) | payer OTHER ==
[2024-11-02 12:03] LABS: INR 2.13; PROTHROMBIN TIME 23.9 SECONDS (12.5-14.5)
== END ==
LOC: M WUC 08:02
PROVIDERS: ATTEND Physician Assistant Medical
DX: Z79.01 Long term (current) use of anticoagulants (principal)

== ENCOUNTER → 2024-11-24 | Outpatient (CLI) | payer OTHER ==
[2024-11-24 12:17] LABS: INR 3.43; PROTHROMBIN TIME 34.3 SECONDS (12.5-14.5)
[2024-11-24 12:35] LABS: HEMOGLOBIN A1c 9.4 % (4.0-6.0)
== END ==
LOC: M WUC 08:02
PROVIDERS: ATTEND Physician Assistant Medical
DX: E11.9 Type 2 diabetes mellitus without complications (principal)

== ENCOUNTER → 2024-11-29 | Outpatient (CLI) | payer OTHER ==
[2024-11-29 12:08] LABS: INR 1.84; PROTHROMBIN TIME 21.5 SECONDS (12.5-14.5)
== END ==
LOC: M WUC 08:03
PROVIDERS: ATTEND Physician Assistant Medical
DX: Z86.718 Personal history of other venous thrombosis and embolism (principal); Z51.81 Encounter for therapeutic drug level monitoring; Z79.01 Long term (current) use of anticoagulants

== ENCOUNTER → 2024-12-21 | Outpatient (REF) | payer OTHER ==
[2024-12-21 13:04] LABS: INR 2.52; PROTHROMBIN TIME 27.2 SECONDS (12.5-14.5)
== END ==
LOC: M LABDRAWP 11:31
PROVIDERS: ATTEND Physician Assistant Medical
DX: Z79.01 Long term (current) use of anticoagulants (principal)

== ENCOUNTER → 2025-03-01 | Outpatient (CLI) | payer OTHER ==
[2025-03-01 12:50] LABS: INR 2.8
== END ==
LOC: M WUC 08:01
PROVIDERS: ATTEND Physician Assistant Medical
DX: Z79.01 Long term (current) use of anticoagulants (principal)

== ENCOUNTER → 2025-04-09 | Outpatient (CLI) | payer OTHER ==
[2025-04-09 12:44] LABS: ESTIMATED AVERAGE GLUCOSE 194.0 MG/DL (60-110)
[2025-04-09 14:00] LABS: INR 2.61
== END ==
LOC: M WUC 08:05
PROVIDERS: ATTEND Physician Assistant Medical
DX: E11.9 Type 2 diabetes mellitus without complications (principal); Z86.718 Personal history of other venous thrombosis and embolism

== ENCOUNTER → 2025-05-15 | Outpatient (CLI) | payer OTHER ==
[2025-05-15 14:33] LABS: INR 3.32
[2025-05-15 15:13] LABS: ESTIMATED AVERAGE GLUCOSE 226.0 MG/DL (60-110)
== END ==
LOC: M WUC 12:33
PROVIDERS: ATTEND Physician Assistant Medical
DX: E11.9 Type 2 diabetes mellitus without complications (principal); Z86.718 Personal history of other venous thrombosis and embolism

== ENCOUNTER → 2025-06-06 | Outpatient (CLI) | payer OTHER ==
[2025-06-06 14:13] LABS: INR 2.77
[2025-06-06 14:25] LABS: ALT/SGPT 30 U/L (7.0-40); AST/SGOT 19 U/L (<34); CALCIUM LEVEL 9.1 MG/DL (8.3-10.6); CARBON DIOXIDE LEVEL 25 MMOL/L (20-31); CHLORIDE LEVEL 102 MMOL/L (98-107); CREATININE FOR GFR 0.80 MG/DL (0.70-1.30); GLOMERULAR FILTRATION RATE > 90.0 (>49); POTASSIUM SERUM 4.5 MMOL/L (3.5-5.1); SODIUM LEVEL 140 MMOL/L (136-145)
[2025-06-06 18:04] LABS: ESTIMATED AVERAGE GLUCOSE 232.0 MG/DL (60-110)
== END ==
LOC: M WUC 10:53
PROVIDERS: ATTEND Physician Assistant Medical
DX: E11.9 Type 2 diabetes mellitus without complications (principal); Z86.718 Personal history of other venous thrombosis and embolism; Z79.01 Long term (current) use of anticoagulants

== ENCOUNTER → 2025-07-06 | Outpatient (CLI) | payer OTHER ==
[2025-07-06 12:23] LABS: INR 1.63
[2025-07-06 12:33] LABS: ESTIMATED AVERAGE GLUCOSE 217.0 MG/DL (60-110)
== END ==
LOC: M WUC 10:15
PROVIDERS: ATTEND Physician Assistant Medical
DX: E11.9 Type 2 diabetes mellitus without complications (principal)

== ENCOUNTER → 2025-07-09 | Outpatient (CLI) | payer OTHER ==
[~2025-07-09] MED LIST changes: +ISOVUE-370 76% 100 ML VIAL As Ordered ONE
== END ==
LOC: M RAD 12:17
PROVIDERS: ATTEND Physician Assistant Medical
DX: J06.9 Acute upper respiratory infection, unspecified (principal); Z86.718 Personal history of other venous thrombosis and embolism; R06.02 Shortness of breath; I25.10 Atherosclerotic heart disease of native coronary artery without angina pectoris; I70.0 Atherosclerosis of aorta; K76.0 Fatty (change of) liver, not elsewhere classified; R16.0 Hepatomegaly, not elsewhere classified; Z95.828 Presence of other vascular implants and grafts
CPT/HCPCS: 71275; 87486; 87581; 87633; 87798; Q9967

== ENCOUNTER → 2025-07-09 | Outpatient (CLI) | payer OTHER ==
[~2025-07-09] MED LIST changes: -ISOVUE-370 76% 100 ML VIAL As Ordered ONE
[2025-07-09 13:20] LABS: BASO # 0.1 10^3/uL (0.0-0.2); BASO % 0.8 % (0.0-1.0); EOS # 0.2 10^3/uL (0.0-0.5); EOS % 1.9 % (0.0-3.0); LYMPH # 3.3 10^3/uL (1.5-5.0); LYMPH % 36.3 % (24.0-44.0); MONO # 0.7 10^3/uL (0.0-0.8); MONO % 7.5 % (2.0-8.0); NEUTROPHILS # 4.8 10^3/uL (1.5-8.5); NEUTROPHILS % 52.9 % (36.0-66.0); PLATELET COUNT, AUTOMATED 298 10^3/uL (150-450)
[2025-07-09 13:26] LABS: CK-MB VALUE MASS 1.1 NG/ML (<3.6)
[2025-07-09 13:27] LABS: ALT/SGPT 83 U/L (7.0-40); AST/SGOT 38 U/L (<34); CALCIUM LEVEL 8.9 MG/DL (8.3-10.6); CARBON DIOXIDE LEVEL 28 MMOL/L (20-31); CHLORIDE LEVEL 103 MMOL/L (98-107); CPK CREATINE PHOSPHOKINASE 46 U/L (46-171); CREATININE FOR GFR 0.79 MG/DL (0.70-1.30); GLOMERULAR FILTRATION RATE > 90.0 (>49); MB/CK RELATIVE INDEX 2.39 (< OR =4); MYOGLOBIN 30.0 NG/ML (<110); POTASSIUM SERUM 4.2 MMOL/L (3.5-5.1); SODIUM LEVEL 141 MMOL/L (136-145)
== END ==
LOC: M PLALAB 09:53
PROVIDERS: ATTEND Physician Assistant Medical
DX: R06.02 Shortness of breath (principal); J06.9 Acute upper respiratory infection, unspecified; Z86.718 Personal history of other venous thrombosis and embolism; Z79.01 Long term (current) use of anticoagulants

== ENCOUNTER → 2025-07-10 | Outpatient (CLI) | payer OTHER | LOC: M CARPUL 12:10 | PROVIDERS: ATTEND Physician Assistant Medical | DX: I08.0 Rheumatic disorders of both mitral and aortic valves (principal); R06.02 Shortness of breath; Z86.718 Personal history of other venous thrombosis and embolism ==

== ENCOUNTER → 2025-07-20 | Outpatient (CLI) | payer OTHER ==
[2025-07-20 15:07] LABS: INR 2.42
== END ==
LOC: M WUC 10:47
PROVIDERS: ATTEND Physician Assistant Medical
DX: Z86.718 Personal history of other venous thrombosis and embolism (principal); Z79.01 Long term (current) use of anticoagulants

== ENCOUNTER → 2025-07-31 | Outpatient (CLI) | payer OTHER | LOC: M CARPUL 14:17 | PROVIDERS: ATTEND Physician Assistant Medical | DX: R06.02 Shortness of breath (principal); Z86.711 Personal history of pulmonary embolism ==

== ENCOUNTER → 2025-08-06 | Outpatient (CLI) | payer OTHER ==
[2025-08-06 12:05] LABS: INR 3.14
== END ==
LOC: M WUC 08:02
PROVIDERS: ATTEND Physician Assistant Medical
DX: Z86.718 Personal history of other venous thrombosis and embolism (principal)